=== PATIENT | male | born 1975 | race Caucasian/White ===

== ENCOUNTER 2017-03-04 20:11 | Emergency (ER) | payer SELFPAY ==
[~2017-03-04] VITALS: Ht 175.3 cm; Wt 110.0 kg
[2017-03-04] MEDS ORDERED: IBUPROFEN 800 MG TABLET PO ONE (21:30)
[2017-03-04 22:29] VITALS: BP 150/72
== END 2017-03-04 23:03 | disposition home or self-care (01) ==
LOC: EMS 20:12
DX: J20.9 Acute bronchitis, unspecified (principal); J45.909 Unspecified asthma, uncomplicated; F17.210 Nicotine dependence, cigarettes, uncomplicated
CPT/HCPCS: 99283

== ENCOUNTER 2017-08-25 23:51 | Emergency (ER) | payer SELFPAY ==
[~2017-08-25] VITALS: Ht 175.3 cm; Wt 106.8 kg
[2017-08-25] MEDS ORDERED: HYDR-3705 PO (23:56)
[2017-08-26] MEDS ORDERED: DEXAMETHASONE SOD PHOS 4 MG/ML 5 ML VIAL IVP ONE (02:45)
[2017-08-26] MEDS ORDERED: PROCHLORPERAZINE EDISYLATE 5 MG/ML 2 ML VIAL IVP ONE (02:45)
[2017-08-26] MEDS ORDERED: MORPHINE SULFATE 4 MG/ML SYRINGE IVP ONE (02:45)
[2017-08-26 03:10] LABS: BASOPHILS % (AUTO) 0.7 % (0.0-2.0); EOSINOPHILS % (AUTO) 5.1 % (1.0-6.0); HEMATOCRIT 47.4 % (41-53); HEMOGLOBIN 17.2 g/dL (13.5-17.5); LYMPHOCYTES # (AUTO) 1.7 K/uL (1.0-4.8); LYMPHOCYTES % (AUTO) 18.3 % (22.0-44.0); MEAN CORPUSCULAR HEMOGLOBIN 36.1 pg (26.0-34.0); MEAN CORPUSCULAR HGB CONC 36.3 G/dL (31.0-37.0); MEAN CORPUSCULAR VOLUME 99 fL (80-100); MONOCYTES # (AUTO) 0.9 K/uL (0.1-1.0); MONOCYTES % (AUTO) 9.7 % (2.0-9.0); NEUTROPHILS # (AUTO) 6.1 K/uL (1.8-7.7); NEUTROPHILS % (AUTO) 66.2 % (40.0-70.0); PLATELET COUNT (AUTO) 197 K/uL (150-450); RED BLOOD CELL COUNT(AUTO) 4.77 MIL/uL (4.50-5.90); RED CELL DISTRIBUTION WIDTH 13.2 % (11.5-14.5)
[2017-08-26 03:18] LABS: ANION GAP 8 mmol/L (8-16); CALCIUM, TOTAL 9.3 mg/dL (8.8-10.5); CARBON DIOXIDE 27 mmol/L (22-29); CHLORIDE 105 mmol/L (98-107); CREATININE 0.88 mg/dL (0.60-1.30); GLOMERULAR FILTR. RATE CALC > 60 mL/min (>60); GLUCOSE,RANDOM 114 mg/dL (70-110); SODIUM SERUM 140 mmol/L (136-145); UREA NITROGEN, BLOOD 12 mg/dL (7-18)
[2017-08-26 04:26] LABS: ERYTHROCYTE SEDIMENTATION RATE 3 MM/HR (0-15)
[2017-08-26 04:55] VITALS: BP 137/84
== END 2017-08-26 05:47 | disposition home or self-care (01) ==
LOC: EMS 23:51
DX: M54.81 Occipital neuralgia (principal); G44.009 Cluster headache syndrome, unspecified, not intractable; F17.210 Nicotine dependence, cigarettes, uncomplicated
CPT/HCPCS: 36415; 70450; 80048; 85025; 85651; 96374; 96375; 99285; J0780; J1100; J2270